=== PATIENT | female | born 1975 | race Two or more races ===

== ENCOUNTER 2022-10-01 18:49 | Emergency (ER) | payer BC ==
[~2022-10-01] VITALS: Ht 157.5 cm; Wt 61.2 kg
[2022-10-01 21:10] VITALS: BP 168/84
[2022-10-01] MEDS ORDERED: ONDA4TAB5 PO (21:27)
[2022-10-01] MEDS ORDERED: IBUPROFEN 400 MG TABLET PO ONE (21:30)
[2022-10-01] MEDS ORDERED: ONDANSETRON 4 MG TAB.RAPDIS SL ONE (21:30)
== END 2022-10-01 21:57 | disposition home or self-care (01) ==
LOC: ER 18:49
DX: G89.29 Other chronic pain (principal); U09.9 Post COVID-19 condition, unspecified; F41.9 Anxiety disorder, unspecified; J45.909 Unspecified asthma, uncomplicated; Z79.899 Other long term (current) drug therapy